=== PATIENT | male | born 1990 | race African-American/Black ===

== ENCOUNTER 2017-04-10 20:00 | Inpatient (IN) | payer BC, OTHER ==
--- NOTE | ~2017-04-10 | PA ---
Unit #: [id number] #: [id number] Patient: GATO ENCARNACION [id number] [facility] [address] [place] [address] [id number] MR#: [id number] NAME: GATO ENCARNACION ROOM: [facility] Age: 26 Sex: M Admission Date: 04/10/2017 : 1990 Date of Assessment: 04/11/2017 Attending Physician: Luis Alfredo Trujillo M.D. Admitting Physician: Luis Alfredo Trujillo M.D. Primary Care Physician: Generic Doctor Not In System PSYCHIATRIC ASSESSMENT INFORMANTS The patient's reliability, fair; chart reliability, good. CHIEF COMPLAINT Depression. HISTORY OF PRESENT ILLNESS Gato Encarnacion is a 26-year-old male, presented with the above-mentioned complaint. The patient has a history of previous admission in 01/2017. The patient has a history of numerous admission in the past at [facility], [facility], [facility], [place], [facility] in the past. The patient presented due to depression, reported experiencing suicidal ideation with a plan to overdose on pills. The patient reported self medicating with alcohol and cannabis. The patient denied any suicidal or homicidal ideation. Denied any psychotic symptom. The patient has outpatient psychiatrist, Dr. Valladares. The patient reported alcohol use, age of onset 20; marijuana, age of onset 20. The patient reported has abused amphetamine. The patient denied any use of IV drug abuse. No history of HIV, hepatitis, withdrawal symptom, or blackout. The patient needed inpatient admission at this time for psychiatric stabilization. PAST PSYCHIATRIC HISTORY Remarkable for history of previous treatment at [facility]. History of previous treatment as mentioned above. FAMILY HISTORY AND SOCIAL HISTORY The patient has a poor support system. No history of abuse. MEDICAL HISTORY Unremarkable for any chronic medical illness. Musculoskeletal; muscle strength and tone, no atrophy or abnormal movement. Gait normal. MEDICATION HISTORY The patient is on Geodon and Vistaril. ALLERGIES No known drug allergies. SUBSTANCE ABUSE HISTORY Please see above. REVIEW OF SYSTEMS HEENT: Eyes, clear. Ears, nose, mouth, and throat; clear. Unit #: [id number] #: [id number] Patient: GATO ENCARNACION CARDIOVASCULAR: Unremarkable. RESPIRATORY: Unremarkable. GI: Unremarkable. : Unremarkable. SKIN: Unremarkable. LYMPH NODE: Unremarkable. NEUROLOGIC: Unremarkable. ENDOCRINE: Unremarkable. HEMATOLOGIC: Unremarkable. ALLERGIC/IMMUNOLOGIC: Unremarkable. MUSCULOSKELETAL: Muscle strength and tone, no atrophy or abnormal movement. Gait normal. MENTAL STATUS EXAMINATION CONSTITUTIONAL: Measurement of vital signs; temperature 98.4, pulse 98, respirations 17, blood pressure 149/95. Height 6 feet and weight 145 pounds. GENERAL APPEARANCE: The patient dressed casually. The patient did not show any facial deformity. MUSCULOSKELETAL: Muscle strength and tone, no atrophy or abnormal movement. Gait normal. PSYCHIATRIC EXAMINATION Description of speech; regular rate, normal volume, normal articulation, coherent. Description of thought process, goal directed. Description of association, intact. Description of abnormal psychotic thinking; the patient denied any hallucination or delusions, but sad, depressed, anxious. Description of the patient's judgment; concerning everyday activity, poor. Social situation, poor. Concerning psychiatric condition, poor. Complete mental status examination; oriented in time, place, and person. Recent and remote memory, fair. Attention span and concentration, fair. Language, able to name object and repeat phrases. Fund of knowledge, aware of current event and passive vocabulary intact. Mood and affect, sad and dysphoric. Insight and judgment, fair to poor. ASSETS AND LIABILITIES Assets; the patient articulate, able to take care of his ADL. Liability; history of depression, substance abuse. ADMITTING DIAGNOSES Psychiatric: Major depressive disorder, recurrent, severe, F33.2; alcohol use disorder, moderate, F10.20; cannabis abuse, moderate, F12.20. Secondary diagnosis: Deferred. Medical diagnosis: None. Stressors: Psychosocial stressors. PSYCHIATRIC PLAN AND TREATMENT GOAL 1. Advised to admit the patient on the inpatient unit. Provide safe, supportive, and structured environment. 2. Ordered labs; CBC, CMP, UA, and UDS. 3. Precaution for self-harm. The patient to attend all the programing on the inpatient unit with group therapy, individual therapy, chemical dependency group. Advised to resume home medication and add Vistaril and Unit #: [id number] #: [id number] Patient: GATO ENCARNACION. If needed, consider further adjustment of medication. Treatment goal to attain euthymic mood, gain insight into his problem, and learn coping skills. DISCHARGE PLAN Plan to stabilize the patient and consider followup in outpatient program. ESTIMATED LENGTH OF STAY 3 to 5 days. Dictated by... Cookie Mccormick/teresa TD: 04/12/2017 03:19 JOB #: [id number] PSYCHIATRIC ASSESSMENT Page 1 of 1 X Luis Alfredo Trujillo MD X PSYCHIATRIC ASSESSMENT
--- NOTE | ~2017-04-10 | HP ---
Unit #: [id number] #: [id number] Patient: GATO RIVAS [id number] [place] [address] [id number] I MR#: [id number] NAME: GATO RIVAS ROOM: P252 Age: 26 Sex: M Admission Date: 04/10/2017 : 1990 Attending Physician: Luis Alfredo Trujillo M.D. Admitting Physician: Luis Alfredo Trujillo M.D. Primary Care Physician: Generic Doctor Not In System HISTORY AND PHYSICAL HISTORY OF PRESENT ILLNESS Gato is a 26 year old admitted to [address] [place] [address] with depression verbalizing wanting to hurt himself. PAST MEDICAL HISTORY 1. History of alcohol abuse. 2. Asthma. PAST SURGICAL HISTORY Right inguinal hernia repair. ALLERGIES No known drug allergies. SOCIAL HISTORY He does not smoke. Drinks alcohol frequently. Admits to using marijuana on occasion. FAMILY HISTORY Medically noncontributory. REVIEW OF SYSTEMS CONSTITUTIONAL: No fever or chills. HEENT: Denies any sore throat, ear pain or runny nose. CARDIOVASCULAR: Denies chest pain, irregular heart rhythm or palpitations. CHEST: Denies shortness of breath or cough. No hemoptysis. GASTROINTESTINAL: Denies nausea, vomiting, diarrhea or chronic constipation. ENDOCRINE: Denies history of increased thirst or urination. No recent significant weight loss or gain. GENITOURINARY: Denies dysuria, frequency, or hematuria. SKIN: Denies any rashes. HEMATOLOGIC: Denies history of increased bleeding or bruising. MUSCULOSKELETAL: Denies any hot, swollen joints. No generalized muscle pain. NEUROLOGIC: Denies problems with vision or speech. No frequent, severe headaches. No numbness, tingling or weakness in any extremities. Denies loss of bladder or bowel control. CURRENT MEDICATIONS 1. Vitamin D 50,000 units q week 2. Trazodone 75 mg q.h.s. Unit #: [id number] #: [id number] Patient: GATO RIVAS 3. Geodon 40 mg q.h.s. 4. Vistaril 25 mg t.i.d. 5. Milk of Magnesia p.r.n. 6. Maalox p.r.n. 7. Tylenol p.r.n. PHYSICAL EXAMINATION GENERAL: Alert, well-nourished, in no apparent distress. VITAL SIGNS: Blood pressure 150/94, heart rate 80, respirations 16, temperature 98.6. WEIGHT: 145 pounds. HEIGHT: 6'0". SKIN: Warm and dry without rash or lesion. HEENT: Normocephalic. TMs not viewed. Oral and nasal passages clear. Conjunctivae clear. Pupils equal, round and reactive to light and accommodation. Extraocular movements intact. NECK: Supple without lymphadenopathy or thyromegaly. HEART: Regular rate and rhythm without murmur. LUNGS: Clear. ABDOMEN: Soft, nontender. : Not done. EXTREMITIES: No evidence of cyanosis, clubbing or edema. Moves all extremities without focal deficit. NEUROLOGICAL: Grossly within normal limits. Cranial Nerves: II: Visual velez are intact. III, IV AND : Extraocular movements are intact. Pupils are equal, round and reactive to light. V: Facial sensation is grossly normal. VII: Facial movements and expression are normal. VIII: Auditory acuity grossly intact. IX, X: Uvula is midline. Phonation is normal. XI: Patient shrugs shoulders and turns head normally. XII: Tongue protrudes in the midline. Sensory and Motor Function: Sensory and motor sensation is grossly normal. Motor: moves all extremities well. Coordination: Gait is normal. Deep Tendon Reflexes: Intact. IMPRESSION Psychiatric admission RECOMMENDATIONS PSYCHIATRIC: Per psychiatrist. MEDICAL: I see no contraindications to participating in facility's activities. MEDICAL PROGNOSIS Good. MEDICAL CONDITION Stable. Dictated by... Gabriella Pearce P.A.-C. for Ian Luque M.D. Unit #: [id number] #: [id number] Patient: GATO RIVAS PEDRITO/jennifer TD: 04/11/2017 21:34 JOB #: [id number] HISTORY AND PHYSICAL Page 1 of 1 X Gabriella Pearce HISTORY AND PHYSICAL
--- NOTE | ~2017-04-10 | EKG ---
PATIENT: PETER RIVAS UNIT #: [id number] Ventricular Rate: 58 BPM Atrial Rate: 58 BPM P-R Interval: 114 ms QRS Duration: 100 ms Q-T Interval: 414 ms QTC Calculation(Bezet): 406 ms P [place]: 65 degrees Calculated R [place]: 66 degrees Calculated T [place]: 4 degrees Diagnosis Line: Sinus bradycardia Diagnosis Line: Otherwise normal ECG Diagnosis Line: No previous ECGs available Diagnosis Line: Confirmed by BREANNE ANTOINE MD ([id number]) on 04/12/2017 Diagnosis Line: 7:27:12 AM INTERPRETING MD: ELINA BLAKE
--- NOTE | ~2017-04-10 | PN ---
Unit #: [id number] #: [id number] Patient: GATO RIVAS [id number] [facility] [address] [place] [address] [id number] I MR#: [id number] NAME: GATO RIVAS ROOM: P252 Age: 26 Sex: M Admission Date: 04/10/2017 : 1990 Attending Physician: Luis Alfredo Trujillo M.D. Admitting Physician: Luis Alfredo Trujillo M.D. Primary Care Physician: Generic Doctor Not In System [facility] PROGRESS NOTES DATE OF SERVICE 04/11/17 DISCUSSION Gato Rivas is a 26-year-old male seen on 04/11/17. Patient interviewed, chart reviewed, I obtained information from nursing staff. Patient sad, depressed, anxious, having mild tremors. Mood labile, sad, dysphoric, anxious, withdrawn, isolative. COMPLETE REVIEW OF SYSTEMS Unremarkable. MENTAL STATUS EXAMINATION GENERAL APPEARANCE: Patient dressed casually. ATTENTION SPAN AND CONCENTRATION: Fair. Oriented in time, place and person. MOOD AND AFFECT: Sad, dysphoric. THOUGHT PROCESS: Patient denied any thoughts of harming self or others at this time. RECENT AND REMOTE MEMORY: Fair. INSIGHT AND JUDGMENT: Fair to slightly impaired. DIAGNOSES PSYCHIATRIC 1. Major depressive disorder, recurrent, severe 2. Alcohol use disorder, severe 3. Cannabis abuse, severe ASSESSMENT/PLAN Advised to continue with current medication and therapeutic protocol. If needed, consider further adjustment in medication. Dictated by... Cookie Mccormick/treasure TD: 04/11/2017 21:50 JOB #: [id number] Unit #: [id number] #: [id number] Patient: GATO RIVAS [place] PROGRESS NOTES Page 1 of 1 X Luis Alfredo Trujillo MD PROGRESS NOTE
--- NOTE | ~2017-04-10 | DS ---
Unit #: [id number] #: [id number] Patient: PETER RIVAS [id number] [facility] [address] [place] [address] [id number] MR#: [id number] NAME: PETER RIVAS ROOM: [facility] Age: 26 Sex: M Admission Date: 04/10/2017 : 1990 Discharge Date: 04/12/2017 Attending Physician: Luis Alfredo Trujillo M.D. Primary Care Physician: Generic Doctor Not In System DISCHARGE SUMMARY REASON FOR ADMISSION Depression. DIAGNOSTIC STUDIES LABORATORY RESULTS: Remarkable for urine drug screen positive for amphetamine. HOSPITAL COURSE The patient was admitted to inpatient unit on 04/10/2017 and discharged on 04/12/2017. The patient was treated on the inpatient unit with group therapy, individual therapy, medication management. The patient was responsive to treatment, requested for discharge. The patient was subsequently discharged with a plan to follow up in outpatient program. DISCHARGE MEDICATIONS Geodon 40 mg at bedtime for psychosis, Vistaril 25 mg t.i.d. for anxiety, and trazodone 50 mg at bedtime for sleep. DISCHARGE DIAGNOSES Psychiatric: Bipolar mood disorder, recurrent, depressed, F31.9; alcohol use disorder, moderate, F10.20; cannabis abuse, moderate, F12.20. Secondary diagnosis: Deferred. Medical diagnosis: None. Stressors: Psychosocial stressors. DISCHARGE INSTRUCTIONS The patient to follow up in outpatient clinic as per social work instructor. CONDITION ON DISCHARGE The patient was pleasant and cooperative. Denied any psychotic symptom or any suicidal ideation. PROGNOSIS Guarded. DIET AND ACTIVITY As tolerated. Dictated by... Unit #: [id number] #: [id number] Patient: PETER RIVAS Cookie Mccormick/teresa TD: 04/12/2017 20:01 JOB #: [id number] DISCHARGE SUMMARY Page 1 of 1 X Luis Alfredo Trujillo MD X DISCHARGE SUMMARY
[2017-04-11 09:32] LABS: BASOPHIL% 0.4 % (0-2.5); EOSINOPHIL# 0.1 X10e3 (0-0.7); EOSINOPHIL% 0.6 % (0.0-7.0); HEMATOCRIT 49.4 % (38.0-50.0); HEMOGLOBIN 16.3 gm/dL (13.0-16.0); LYMPHOCYTE# 2.2 X10e3 (1.0-3.5); LYMPHOCYTE% 28.3 % (17.0-45.0); MEAN CELL VOLUME 91.3 FL (83-96); MEAN CORPUSCULAR HEMOGLOBIN 30.1 PG (28-34); MEAN PLATELET VOLUME 7.8 FL (6.5-11.5); MONOCYTE# 0.8 X10e3 (0-1.0); MONOCYTE% 10.1 % (3.0-12.0); NEUTROPHIL# 4.7 X10e3 (1.5-7.1); NEUTROPHIL% 60.6 % (40-75); PLATELET COUNT 309 X10e3 (140-420); RED BLOOD COUNT 5.41 X10e (3.90-5.60); RED CELL DISTRIBUTION WIDTH 14.1 % (11.0-15.5); WHITE BLOOD COUNT 7.8 X10e3 (4.0-10.5)
[2017-04-11 09:48] LABS: DIFF IND NO
[2017-04-11 10:28] LABS: ALBUMIN SERUM 4.3 g/dL (3.5-5.0); BILIRUBIN,TOTAL 1.3 mg/dL (0.2-2.0); BUN/CREATININE RATIO 6.15; CALCIUM SERUM 9.5 mg/dL (8.4-10.2); CREATININE SERUM 1.3 mg/dL (0.6-1.4); GLOM FILT RATE Estimated 88.5 mL/min (>60); POTASSIUM 3.7 mmol/L (3.5-5.1); PROTEIN TOTAL SERUM 7.5 g/dL (6.0-8.3)
[2017-04-11 14:40] LABS: AMPHETAMINE POS (NEG); BARBITURATES NEG (NEG); BENZODIAZEPINES NEG (NEG); COCAINE NEG (NEG); MARIJUANA NEG (NEG); OPIATES NEG (NEG); TRICYCLIC ANTIDEPRESSANTS NEG (NEG); U METHADONE NEG (NEG); URINE APPEARANCE CLEAR; URINE BILIRUBIN NEG (NEG); URINE BLOOD TRACE (NEG); URINE COLOR YELLOW; URINE GLUCOSE NEG (NEG); URINE KETONE NEG (NEG); URINE LEUKOCYTE ESTERASE NEG (NEG); URINE NITRATE NEG (NEG); URINE PROTEIN NEG (NEG); URINE SPECIFIC GRAVITY 1.013 (1.003-1.035); URINE UROBILINOGEN 0.2 MG/DL (NEG)
[2017-04-11 14:44] LABS: URBCS1 AUWI 0-2 /[HPF] (0-2); URINE BACTERIA AUWI NEG (NEGATIVE); URINE SQUAMOUS EPITHELIAL CELL NONE SEEN /[HPF]; UWBCS1 AUWI 0-2 (0-5)
== END 2017-04-12 10:30 | disposition home or self-care (01) | DRG 885 ==
LOC: P2L 21:40
PROVIDERS: Psychiatry & Neurology Psychiatry
DX: F33.2 Major depressive disorder, recurrent severe without psychotic features (principal); F10.20 Alcohol dependence, uncomplicated; J45.909 Unspecified asthma, uncomplicated; F12.10 Cannabis abuse, uncomplicated
CPT/HCPCS: 80053; 80307; 81003; 85025; 93005